=== PATIENT | female | born 1995 | race Caucasian/White ===

== ENCOUNTER 2018-09-08 00:45 | Emergency (ER) | payer SELFPAY ==
[~2018-09-08] VITALS: Ht 165.1 cm; Wt 70.8 kg
[2018-09-08 00:48] VITALS: Ht 165.1 cm; Wt 70.8 kg
[2018-09-08 02:03] VITALS: BP 117/81
== END 2018-09-08 01:20 | disposition left against medical advice (07) ==
LOC: ED 00:45
DX: O26.893 Other specified pregnancy related conditions, third trimester (principal); M54.5 Low back pain; R10.30 Lower abdominal pain, unspecified; Z3A.40 40 weeks gestation of pregnancy